=== PATIENT | female | born 1965 | race Caucasian/White ===

== ENCOUNTER 2019-03-24 23:53 | Emergency (ER) | payer OTHER ==
[~2019-03-24] VITALS: Ht 160 cm; Wt 84.8 kg
[2019-03-24 23:59] VITALS: Ht 160 cm; Wt 84.8 kg
[2019-03-25 02:09] VITALS: BP 151/91
== END 2019-03-25 02:09 | disposition home or self-care (01) ==
LOC: ED 23:53
DX: S52.591A Other fractures of lower end of right radius, initial encounter for closed fracture (principal); W01.0XXA Fall on same level from slipping, tripping and stumbling without subsequent striking against object, initial encounter; Y93.89 Activity, other specified; Y92.89 Other specified places as the place of occurrence of the external cause; Y99.8 Other external cause status
CPT/HCPCS: Q0092